=== PATIENT | female | born 1985 | race Caucasian/White ===

== ENCOUNTER 2018-03-01 03:36 | Inpatient (IN) | payer MEDICAID ==
[2018-03-01] VITALS (28 sets, daily range): BP systolic 90–124; BP diastolic 47–92
[~2018-03-01] VITALS: Ht 167.6 cm; Wt 69.9 kg
--- NOTE | 2018-03-01 03:40 | NUR ---
DEMETRI HENDERSON. SECODARY TO POSSIBLE OVERDOSE TO UNKNOWN MEDS. PT UNAROUSABLE BUT RESPONSIVE TO PAIN STIMULI. .O2 SAT 82% ON ROOM AIR WITH SNORING RESPIRATIONS. SKIN PINK, WARM, DRY. PUPILS DILATED. ASSISTED RESPIRATIONS VIA BVM 15LPM. KING MAK AT BEDSIDE TO EVAL PT. WITH ORDERS TO PREP PT ENTUBATION. Addendum: 03/01/18 at 0438 by MEDINA PER EMS S/O STATES PT PERSCRIBED SOMA.
[2018-03-01] MEDS ORDERED: PROPOFOL 100 ML ONE (03:42)
--- NOTE | 2018-03-01 03:44 | NUR ---
ER MD, RT, RN ERNESTINA DIXON JEFF, BERNARD, TOMMIE ED AT BEDSIDE FOR INTUBATION.
--- NOTE | 2018-03-01 03:48 | NUR ---
SUCCESSFUL INTUBATION. ET SIZE 7.5 AT 23.POSITIVE COLOR CHANGE CO2 DETECTOR, EQUAL BILATERAL BREATH SOUNDS. VENT SETTINGS AC 18, TV 450, FIO2 60%, PEEP 5.0. WILL CONTINUE TO MONITOR CLOSELY
--- NOTE | 2018-03-01 03:55 | NUR ---
RT PT INTUBATED W/ 7.5 @ 23 CM LIP VIA MD PARKS. ETT PT PLACED ON [facility] VENT WITH NOTED SETTING PER . VENT TO RED OUTLET. ALARMS SET AND AUDIBLE. AMBU BAG AT HOB. ETT PATENT AND SECURE VIA ANCHOR FAST. RESOURCE COORDINATOR DONE. BILATERAL BS AND POSITIVE CAPNO CHANGE. PT TOLERATING SETTING WELL NO SOB OR DISTRESS NOTED. WILL CONTINUE TO MONITOR. Addendum: 03/01/18 at 0359 by BRETT HENDRICKS RT Amended: Links added.
[2018-03-01] MEDS ORDERED: IV NS 0.9% 1,000 ML BAG IV ONE ×2 (04:00→05:30)
[2018-03-01] MEDS ORDERED: PROPOFOL 100 ML IV PRN ×2 (04:00→06:30)
[2018-03-01 04:10] LABS: BASOPHILS % (AUTO) 0.3 % (0.0-2.0); EOSINOPHILS % (AUTO) 0.8 % (0.0-6.0); HEMATOCRIT 36 % (33-45); HEMOGLOBIN 11.9 g/dL (11.5-14.8); LYMPHOCYTES # (AUTO) 1.9 /CMM (0.8-4.8); LYMPHOCYTES % (AUTO) 34.5 % (20.0-44.0); MEAN CORPUSCULAR HEMOGLOBIN 33 PG (26.0-33.0); MEAN CORPUSCULAR HGB CONC 33 g/dl (31.0-36.0); MEAN CORPUSCULAR VOLUME 98 fL (82-100); MONOCYTES # (AUTO) 0.3 /CMM (0.1-1.30); MONOCYTES % (AUTO) 4.7 % (2.0-12.0); NEUTROPHILS # (AUTO) 3.3 /CMM (1.8-8.9); NEUTROPHILS % (AUTO) 59.7 % (43.0-81.0); PLATELET COUNT (AUTO) 353 /CMM (150-450); RDW COEFFICIENT OF VARIATION 13.7 (11.5-15.0); RED BLOOD CELL COUNT(AUTO) 3.65 MIL/uL (4.0-5.2); WHITE BLOOD COUNT (AUTO) 5.6 K/uL (4.3-11.0)
[2018-03-01 04:19] LABS: APPEARANCE,URINE CLEAR (CLEAR); BILIRUBIN,URINE NEGATIVE (NEGATIVE); BLOOD, URINE TRACE-INTA Ery/uL (NEGATIVE); COLOR,URINE YELLOW (YELLOW); KETONES,URINE NEGATIVE (NEGATIVE); LEUKOCYTE ESTERASE ,URINE NEGATIVE (NEGATIVE); NITRITE, URINE NEGATIVE (NEGATIVE); PROTEIN,URINE TRACE mg/dl (NEGATIVE); UGLUCOSE NEGATIVE (NEGATIVE); UROBILINOGEN,URINE 0.2 EU/dL (0.2)
[2018-03-01 04:24] LABS: RBC,URINE 0-2 /HPF (0-2); WBC,URINE 0-2 /HPF (0-3)
[2018-03-01 04:25] LABS: BACTERIA,URINE Few /HPF (None Seen); SQUAMOUS EPITHELIAL CELL,UR Few /HPF (None Seen)
[2018-03-01 04:37] LABS: CALCIUM, SERUM 8.3 mg/dL (8.5-10.1); CARBON DIOXIDE 27 mmol/L (21-32); CHLORIDE 100 mmol/L (98-107); CREATININE 0.6 mg/dL (0.6-1.3); GLUCOSE 113 mg/dL (74-106); POTASSIUM 4.2 mmol/L (3.5-5.1); SODIUM SERUM 137 mmol/L (136-145); UREA NITROGEN, BLOOD 9 mg/dL (7-18)
--- NOTE | 2018-03-01 04:39 | NUR ---
PT MOTHER AT BEDSIDE. AWARE OF TX PLAN
[2018-03-01 04:43] LABS: ACETAMINOPHEN 0 ug/ml (10-30); ALANINE AMINOTRANSFERASE 182 U/L (12-78); ALBUMIN 3.9 g/dL (3.4-5.0); ALCOHOL, BLOOD 62 mg/dL (0-0); ALKALINE PHOSPHATASE 79 U/L (46-116); ASPARTATE AMINOTRANSFERASE 170 U/L (15-37); BILIRUBIN,TOTAL 0.2 mg/dL (0.2-1.0); SALICYLATE 1.1 mg/dL (2.8-20.0); TOTAL PROTEIN, SERUM 7.7 g/dL (6.4-8.2)
[2018-03-01] MEDS ORDERED: AZTREONAM 1 G in IV NS 0.9% 100 ML IV STA (05:11)
--- NOTE | 2018-03-01 05:15 | NUR ---
PT BROUGHT TO CT
[2018-03-01] MEDS ORDERED: LEVOFLOXACIN 750 MG /D5W 150ML 750 MG in PREMIX 1 EA IV SCH ×2 (05:30→09:00)
[2018-03-01] MEDS ORDERED: IV NS 0.9% 500 ML BAG IV ONE (05:30)
[2018-03-01 05:34] LABS: ABG BASE EXCESS -3.8 mmol/L; ABG OXYGEN SATURATION 98.8 % (92.0-98.5); ABG PH 7.372 (7.350-7.450); ABG PO2 273.8 mmHg (75.0-100.0); AaDO2 113.3 mmHg; COHb 0.3 % (0.5-1.5); MetHb 0.5 % (0.0-1.5); PEEP,BG 5 cm H2O; SITE, ABG Right Radial; VT, ABG 450 mL
[2018-03-01] MEDS ORDERED: LEVOFLOXACIN 750 MG /D5W 150ML 150 ML IV ONE (05:34)
--- NOTE | 2018-03-01 05:40 | NUR ---
PER MD PARKS ETT ADJUSTED TO 21CM LIP. ETT PATENT AND SECURE. Addendum: 03/01/18 at 0542 by BRETT HENDRICKS RT Amended: Links added.
--- NOTE | 2018-03-01 06:06 | NUR ---
REPORT GIVEN TO FERTILIZING MACHINE OPERATORMARCELA WARD
[2018-03-01] MEDS ORDERED: AZTREONAM 1 G VIAL ONE (06:10)
--- NOTE | 2018-03-01 06:20 | NUR ---
FIELD ADVISOR: PT ADMITTED FOR ACUTE RESPIRATORY FAILURE REQUIRING INTUBATION. VENT SETTINGS ORDERED. SEDATED WT PROPOFOL STARTED FROM ER RUNNING AT 50MCG/KG/MIN, WITHDRAWS TO DEEP PAIN STIMULI. NO ACUTE DISTRESS, NO EVIDENCE OF DISCOMFORT. SR ON ENGINEERING OFFICER. AFEBRILE. RT. NGT IN PLACED AND CLAMPED. F/C PATENT AND INTACT DRAINING YELLOW URINE TO GRAVITY. BODY ASSESSMENT DONE WT NO SKIN BREAKDOWN. BILAT. SOFT WRIST RESTRAINTS IN PLACE TO PREVENT SELF EXTUBATION. NO S/S OF IV INFILTRATION. HOB AT 45 DEGREES. SAFETY PRECAUTION NOTED.
[2018-03-01] MEDS ORDERED: Z GUARD REMEDY 2 OZ OINT TP PRN (06:30)
[2018-03-01] MEDS ORDERED: ACETAMINOPHEN 650 MG/SUPP.RECT RC PRN (06:30)
[2018-03-01] MEDS ORDERED: ONDANSETRON HCL/PF 4 MG/2 ML VIAL IVP PRN (06:30)
[2018-03-01] MEDS ORDERED: MAGNESIUM HYDROXIDE 30 ML UDC PO PRN (06:30)
--- NOTE | 2018-03-01 06:36 | NUR ---
PT TRANSP TO ICU STABLE CONDITION. RT, EMT, RN ASSIST
--- NOTE | 2018-03-01 07:00 | NUR ---
ANESTHESIOLOGY TECHNOLOGIST: LAZARO VASQUEZ MADE AWARE OF LACTIC ACID 3.1 FROM 3. ENDORSED TO DAY SHIFT FOR CONTINUITY OF CARE AND MADE AWARE OF ETT READJUSTMENT PERFORMED BY RT IN ER AND RECOMMENDED TO ASK MD FOR REPEAT CXR.
--- NOTE | 2018-03-01 07:11 | NUR ---
latrice at bedside. received report on patient. patient was found unresponsive on bathroom floor at home by parents. x2 narcan given without improvement and intubated in ER. patient 7.09/06 at [facility]; per board mixer tender order to remove 2cm s/t ett in right mainstem bronchus. tolerating vent settings at 50% saturating 100% noisy respirations noted and thin clear secretions suctioned. no noted sob, difficulty breathing. patient on ordered diprovan will continue to titrate per protocol. patient grimaces to pain. iv sites c/d/i/p. 500ml ns bolus running per order. vs stable. luque cath in place draining to gravity. aspiration, safety, and skin precautions in place. will monitor. Addendum: 03/01/18 at 0725 by DRISS CAMPOVERDE RN patient on 50mcg/kg diprovan will continue to titrate. Addendum: 03/01/18 at 0859 by DRISS CAMPOVERDE RN PATIENT 7.12/04 LIP
--- NOTE | 2018-03-01 07:46 | NUR ---
PATIENT RESPONSIVE WHILE OFF DIPROVAN. OPENS EYES AND FOLLOWS COMMANDS. THRASHING HEAD AND NODDING YES TO BEING UNCOMFORTABLE. WILL RESUME DIPROVAN AND TITRATE PER PROTOCOL
[2018-03-01] MEDS: IV NS 0.9% 1,000 ML IV PRN ×2 (07:50→21:10)
--- NOTE | 2018-03-01 08:15 | NUR ---
PER FAMILY AT BEDSIDE PATIENT STATED SHE TOOK SOMA AND SOME WINE LAST NIGHT. PATIENT OD'D ON SOMA 8 YEARS AGO WITH SIMILAR ADMISSION AND WAS TOLD AT THAT TIME BY AN MD SHE IS UNABLE TO FROM AN OD ON SOMA SO FAMILY IS UNK IF PATIENT OD WAS ACCIDENTAL OR NOT. MOTHER STATES PATIENT HAS BEEN DEPRESSED LATELY DUE TO [place] DISEASE. PATIENT ALSO HAS RX FOR ATIVAN AND VALIUM UNK IF TOOK ALSO. SOCIAL CONSULT ORDERED.
--- NOTE | 2018-03-01 08:18 | NUR ---
PER CHRISTINA HUGHES REQUEST NOTIFIED PER FAMILY PCN ALLERGY IS "BAD" UNKNOWN RESPONSE HOWEVER. DR MULTANI AT BEDSIDE.
--- NOTE | 2018-03-01 08:30 | NUR ---
NOTIFIED DR MULTANI PATIENT OGT PLACEMENT PER X RAY THORACIC INLET PER MD IRBY TO REMOVE. REMOVED NO COMPLICATIONS NOTED
--- NOTE | 2018-03-01 09:11 | NUR ---
PER MD NERISSA FLORES.
[2018-03-01] MEDS: PANTOPRAZOLE 40 MG VIAL IV SCH (09:18)
[2018-03-01] MEDS: ENOXAPARIN SODIUM 40 MG/0.4 ML DISP.SYRIN SQ SCH (09:51)
[2018-03-01] MEDS ORDERED: DC PROPOFOL WHEN EXTUBATED XX PRN (10:00)
--- NOTE | 2018-03-01 11:05 | NUR ---
PER ORDER PATIENT TOLERATING FI02 TITRATION CURRENTLY AT 35%. ON 10MCG DIPROVAN COMFORTABLE. FOLLOWING COMMANDS AND RESTING COMFORTABLY. MOTHER AT BEDSIDE
--- NOTE | 2018-03-01 11:31 | NUR ---
Social service consult requested by Dr. Kelley for drug overdose. Pt. is a 32 year old female who was admitted to [facility] for respiratory failure due to overdosing on Soma. SW is unable to assess pt. at this time due to pt. being intubated. TRICIA spoke with pt's mother Caity who informed SW that pt. has a history of trauma. TRICIA informed Caity she will follow up with the pt. once pt. is alert and oriented. TRICIA also informed Caity that pt. will be assessed by a psychiatrist as well.
[2018-03-01] MEDS ORDERED: METRONIDAZOLE 500MG/ NS 100ML 500 MG in PREMIX 1 EA IV SCH (12:00)
--- NOTE | 2018-03-01 14:49 | NUR ---
NOTIFIED DR DONALDSON PATIENT IS COOPERATIVE, OPENING EYES INDEPENDENTLY, FOLLOWING COMMANDS. PER MD PLEASE DO CPAP TRIAL 06/20 AND OBTAIN ABG 30MIN S/P CHANGES
[2018-03-01 15:37] LABS: ABG BASE EXCESS -0.9 mmol/L; ABG OXYGEN SATURATION 97.5 % (92.0-98.5); ABG PCO2 39.5 mmHg (35.0-45.0); ABG PH 7.398 (7.350-7.450); ABG PO2 129.2 mmHg (75.0-100.0); AaDO2 74.4 mmHg; COHb 0.3 % (0.5-1.5); MetHb 0.5 % (0.0-1.5); O2Hb 96.7 % (94.0-97.0); SITE, ABG Right Radial; VENT MODE, BG CPAP PSV 12
--- NOTE | 2018-03-01 15:53 | NUR ---
PATIENT EXTUBATED SUCCESSFULLY PER DR DONALDSON ORDER. NO COMPLICATIONS NOTED. PATIENT A/0X4 ABLE TO PROTECT AIRWAY. PLACED ON 2LPM NC AND SATURATING 99%. PATIENT S/O AT BEDSIDE.
--- NOTE | 2018-03-01 15:53 | NUR ---
PT EXTUBATED POST WEANING TRIAL. PLACED ON 2 LPM O2. ZERO DISTRESS NOTED PT ABLE TO SPEAK. B/S EQUAL. MD AND RN AWARE.
--- NOTE | 2018-03-01 17:11 | NUR ---
NOTIFIED DR MULTANI PATIENT PASSED NURSING SWALLOW EVAL. TOLERATING LIQUIDS AND SNACKS NO COMPLICATIONS NOTED. ABLE TO CLEAR SECRETIONS AND PROTECT AIRWAY. SOFT DIET ORDERED
--- NOTE | 2018-03-01 18:36 | NUR ---
pt stable. tolerated dinner no s/s aspiration. s/o at bedside. ivf running per order. iv site c/d/i/p. luque cath to gravity. tolerating nc 2lpm 99-100%. patient a/ox4 alert. no complaints at this time. aspiration, safety, and skin precautions in place. will endorse to rn for cocn
--- NOTE | 2018-03-01 19:30 | NUR ---
CAREER COORDINATOR: RECEIVED S/P EXTUBATED PT, WT EYES CLOSED. ON 2L 02 VIA NC WT NO ACUTE DISTRESS. NO EVIDENCE OF DISCOMFORT. SR ON EDUCATIONAL THERAPIST. STILL ON NS AT 75ML/HR WT NO S/S OF IV INFILTRATION. F/C PATENT AND INTACT DRAINING YELLOW URINE TO GRAVITY. HOB AT 35 DEGREES. SAFETY AND ASPIRATION PRECAUTION NOTED. MOM AND BOYFRIEND AT BEDSIDE. WILL CONTINUE TO MONITOR.
[2018-03-02] VITALS (25 sets, daily range): BP systolic 97–138; BP diastolic 53–98
[2018-03-02] MEDS: ACETAMINOPHEN 325 MG TABLET PO PRN (01:50)
--- NOTE | 2018-03-02 01:50 | NUR ---
CAMPUS SAFETY OFFICER: PT WOKE UP AND BECOME MORE ALERT AT THIS TIME. C/O HEADACHE (09/23) AND GIVEN TYLENOL ORDERED AND TOLERATED WELL WT NO S/S OF ASPIRATION. ORIENTED X 3. SAFETY PRECAUTION NOTED AT ALL TIMES. WILL CONTINUE TO MONITOR TYLENOL EFFECTIVITY.
--- NOTE | 2018-03-02 02:50 | NUR ---
FUNERAL SERVICE APPRENTICE: REASSESSED AFTER GIVEN TYLENOL. PT VERBALIZED STILL WT HEADACHE (3). ASKED FOR COLD PACK TO PLACE ON FOREHEAD. WILL CONTINUE TO MONITOR.
[2018-03-02 03:57] LABS: BASOPHILS # (AUTO) 0.1 /CMM (0.0-0.2); BASOPHILS % (AUTO) 0.6 % (0.0-2.0); HEMATOCRIT 32 % (33-45); HEMOGLOBIN 10.8 g/dL (11.5-14.8); LYMPHOCYTES # (AUTO) 1.2 /CMM (0.8-4.8); LYMPHOCYTES % (AUTO) 11.4 % (20.0-44.0); MEAN CORPUSCULAR HEMOGLOBIN 33 PG (26.0-33.0); MEAN CORPUSCULAR HGB CONC 34 g/dl (31.0-36.0); MEAN CORPUSCULAR VOLUME 99 fL (82-100); MONOCYTES # (AUTO) 0.6 /CMM (0.1-1.30); MONOCYTES % (AUTO) 6.1 % (2.0-12.0); NEUTROPHILS # (AUTO) 8.5 /CMM (1.8-8.9); NEUTROPHILS % (AUTO) 80.9 % (43.0-81.0); PLATELET COUNT (AUTO) 344 /CMM (150-450); RDW COEFFICIENT OF VARIATION 13.9 (11.5-15.0); RED BLOOD CELL COUNT(AUTO) 3.26 MIL/uL (4.0-5.2); WHITE BLOOD COUNT (AUTO) 10.4 K/uL (4.3-11.0)
[2018-03-02 04:12] LABS: CALCIUM, SERUM 7.6 mg/dL (8.5-10.1); CREATININE 0.5 mg/dL (0.6-1.3); MAGNESIUM 1.7 mg/dL (1.8-2.4); PHOSPHORUS 2.9 mg/dL (2.5-4.9); POTASSIUM 3.8 mmol/L (3.5-5.1)
[2018-03-02] MEDS: MORPHINE SULFATE INJ 2 MG/ML DISP.SYRIN IV PRN ×4 (04:16→22:50)
--- NOTE | 2018-03-02 04:16 | NUR ---
TECHNICAL APPLICATIONS SCIENTIST: PT VERBALIZED HEADACHE HAS GOTTEN WORSE (02/23) AND IS INEFFECTIVE BY TYLENOL AND NON-PHARMACOLOGICAL MEASURES. MORPHINE GIVEN. ALSO REFUSED BED BATH. REMAINS CLEAN AND DRY. WILL TRY AGAIN LATER AND CONTINUE TO MONITOR PAIN LEVEL.
[2018-03-02 04:25] LABS: THYROID STIMULATING HORMONE 0.439 uIU/mL (0.358-3.74)
--- NOTE | 2018-03-02 06:30 | NUR ---
COMBAT SYSTEMS OPERATOR: REMAINED A/O X 3. STILL ON 2L 02 VIA NC WT NO ACUTE DISTRESS. ST ON FIELD PIPELINES SUPERVISOR SINCE AWAKE. STILL C/O HEADACHE (09/23). RELAXATION AND DISTRACTION TECHNIQUES RENDERED WT GOOD EFFECT. MOM AT BEDSIDE. SAFETY PRECAUTION NOTED AT ALL TIMES.
--- NOTE | 2018-03-02 08:00 | NUR ---
received pt from meat stuffer, a/o x4, follows commands, ST, on 2L NC, sat well, lungs clear, no edema, tolerates diet, good urine output, v/s stable, no pain, family at the bedside.
[2018-03-02] MEDS: PANTOPRAZOLE 40 MG VIAL IV SCH (09:23)
[2018-03-02] MEDS: ENOXAPARIN SODIUM 40 MG/0.4 ML DISP.SYRIN SQ SCH (09:25)
[2018-03-02] MEDS: Magnesium 1GM/D5W 100ML PREMIX 100 ML IV SCH ×2 (11:11→13:13)
[2018-03-02] MEDS: IV NS 0.9% 1,000 ML IV PRN (11:16)
--- NOTE | 2018-03-02 16:08 | NUR ---
pt is resting in the bed, v/s stable, no pain, good urine output, tolerates feeding.
--- NOTE | 2018-03-02 20:43 | NUR ---
MORTGAGE SPECIALIST. INITIAL ASSESSMENT. RECEIVED THE PT REST ON THE BED. AWAKE, ALERT, FOLLOW COMMANDS. GRINDING AND SPRAYING SUPERVISOR SHOWING S TACH. OXYGEN 2L VIA NASAL CANNULA. SAT 98%. NO ACUTE DISTRESS NOTED. IV LY HAND 20G. IVF NS 75ML/H. HOB ELEVATED. FC PATENT. URINE DRAINING. WILL CONTINUE TO MONITOR VITALS.
--- NOTE | 2018-03-02 22:06 | NUR ---
MAST MAKER. TRANSFER THE PT TO TELE ROOM 313 BED #2. PT IS STABLE, REPORT GIVEN TO MARCELA YANG.
--- NOTE | 2018-03-02 22:30 | NUR ---
SECOND BALLER NOTES PATIENT TRANSFERRED FROM ICU UNDER ACLS PROTOCOL, ACCOMPANIED BY 2 ICU NURSES, ENTERED THE UNIT VIA GURNEY, PT IS ALERT AND ORIENTED X 4, NO SOB, BREATHING EVEN AND UNLABORED, IN NO ACUTE DISTRESS. PT VERBALIZED THAT SHE HAS A HEADACHE AND HAS 8/10 LEVEL OF PAIN. ORIENTED PATIENT REGARDING UNIT, ROOM, CALL LIGHT, USE OF CALL LIGHT AND VISITING HOURS. PT VERBALIZED UNDERSTANDING BUT WITH REQUEST FOR S.O., SASCHA TO STAY OVERNIGHT, CHARGE NURSE AWARE. ALL PATIENT'S NEEDS ATTENDED TO AT THIS TIME, BED IN LOW POSITION AND LOCKED IN PLACE, WITH GOOD SAFETY AWARENESS, DENIES ANY S.I. AT THIS TIME. CALL LIGHT WITHIN EASY REACH. WILL CONTINUE TO MONITOR PT. PT UNDER TELE MONITORING, ST @ 115 BPM. Addendum: 03/02/18 at 2356 by MONSERRAT YODER RN PT WITH FARFAN CATHETER DRAINING WELL WITH CLEAR, YELLOW URINE. ON IVF ORDERED INFUSING WELL VIA IV PERIPHERAL LINE ON LW G#20. RECEIVING O2 VIA NC @ 2LPM.
--- NOTE | 2018-03-02 23:00 | NUR ---
STOCKLAYER NOTE SPOKE TO PT REGARDING DIET, PT COMFORTABLE WITH CURRENT DIET OF SOFT DIET, WITH NO EPISODE OF N/V/D. PT VERBALIZED SHE WOULD LIKE TO CONTINUE TO BE ON SOFT DIET FOR BREAKFAST AND SEE HOW IT GOES FROM THERE. RESPECTED PT'S DECISION.
[2018-03-03] MEDS: IV NS 0.9% 1,000 ML IV PRN (02:16)
[2018-03-03] MEDS: MORPHINE SULFATE INJ 2 MG/ML DISP.SYRIN IV PRN ×5 (03:02→22:24)
[2018-03-03 04:00] VITALS: BP 122/87
--- NOTE | 2018-03-03 06:52 | NUR ---
RECRUITER COORDINATOR NOTES PATIENT IN BED, AWAKE, ALERT AND ORIENTED X 4, NO SOB , BREATHING EVEN AND UNLABORED, IN NO ACUTE DISTRESS. PATIENT'S BF AT BEDSIDE. ALL PATIENT'S NEEDS ATTENDED TO THROUGHOUT THE SHIFT. IVF INFUSING WELL VIA IVP ON LW, FARFAN CATHETER DRAINING WITH YELLOW CLEAR URINE. PLACED BED IN LOW POSITION AND LOCKED IN PLACE, CALL LIGHT WITHIN EASY REACH. PT ON TELE MONITORING, SINUS RHYTHM/SINUS TACHYCARDIA @ 94-120S. WILL ENDORSE TO AM SHIFT NURSE FOR CONTINUITY OF CARE.
--- NOTE | 2018-03-03 07:25 | NUR ---
JOURNEYMAN CARPENTER OPENING NOTES PATIENT RECEIVED ASLEEP IN BED, EASILY AWAKENS. HOB ELEVATED. BOYFRIEND AT BEDSIDE. ON 02 VIA N/C @ 2LPM, BREATHING EVEN AND UNLABORED. ON TELE MONITORING WITH CURRENT READING OF SINUS TACHYCARDIA 102. IV ACCESS ON LEFT WRIST INTACT AND PATENT, IVF OF NS @ 75ML/HR INFUSING WELL, NO S/S OF INFILTRATIONS NOTED. FARFAN CATHETER IN PLACE, DRAINING YELLOW CLEAR URINE TO URINARY BAG. BED IN LOW POSITION AND LOCKED. CALL LIGHT WITHIN EASY REACH. WILL CONTINUE TO MONITOR.
[2018-03-03 08:00] VITALS: BP 147/91
[2018-03-03] MEDS: ENOXAPARIN SODIUM 40 MG/0.4 ML DISP.SYRIN SQ SCH (08:21)
[2018-03-03] MEDS: PANTOPRAZOLE 40 MG VIAL IV SCH (08:21)
[2018-03-03 08:54] LABS: CALCIUM, SERUM 8.2 mg/dL (8.5-10.1); CREATININE 0.6 mg/dL (0.6-1.3); MAGNESIUM 1.9 mg/dL (1.8-2.4); POTASSIUM 3.7 mmol/L (3.5-5.1)
--- NOTE | 2018-03-03 09:17 | NUR ---
RN NOTES DR MULTANI ORDER PSYCH CONSULT FOR PT. CALLED [employer]S SWIM COACH AND SAID THAT IT'S DR RIVERA. FACE SHEET AND ROOM NO OF PT FAXED TO [employer] AND WAS RECEIVED. WILL F/U.
--- NOTE | 2018-03-03 10:06 | NUR ---
RN NOTES/PAIN MGNT PATIENT COMPLAINTS OF HEADACHE AND PAIN ON B/L LEGS WITH SCALE OF 8/10, PRN MORPHINE 2MG IVP GIVEN. WILL CONTINUE TO MONITOR.
[2018-03-03] MEDS ORDERED: ALBUTEROL SULFATE 8 GM HFA.AER.AD IH PRN (10:30)
[2018-03-03] MEDS ORDERED: ALBUTEROL FS 2.5 MG/3 ML VIAL.NEB NEB PRN (10:30)
--- NOTE | 2018-03-03 12:03 | NUR ---
RN NOTES MD WITH ORDER TO D/C IVF AND FARFAN CATHETER. ORDERED CARRIED OUT AND PT VOIDED ON THE TOILET W/O PROBLEMS, SAME NO HEMATURIA NOTED. WILL CONTINUE TO MONITOR
[2018-03-03] MEDS: DULOXETINE HCL 30 MG CAPSULE.DR PO SCH (14:25)
--- NOTE | 2018-03-03 14:32 | NUR ---
RN NOTES/PAIN MGNT PATIENT COMPLAINTS OF GENERALIZED PAIN WITH SCALE OF 8/10, PRN MORPHINE 2MG IVP GIVEN. WILL CONTINUE TO MONITOR.
[2018-03-03 16:00] VITALS: BP_SYST 135; BP_SYST 156; BP_DIAS 101; BP_DIAS 95
--- NOTE | 2018-03-03 17:26 | NUR ---
RN NOTES PATIENT SEEN AND EVALUATED BY DR HEAD WITH ORDER TO ADMINISTER PATIENT PRN SALINE NASAL SPRAY PRN. WILL CARRY OUT ORDER
[2018-03-03] MEDS ORDERED: SALINE NASAL SPRAY 0.65% 1 BOTTLE BOTTLE NS PRN (17:30)
--- NOTE | 2018-03-03 18:59 | NUR ---
MS RN CLOSING NOTES PATIENT AWAKE AND RESTING IN BED WITH FAMILY AT BEDSIDE. A/O X4. ABLE TO MAKE NEEDS KNOWN WITH C/O GENERALIZED PAIN FEW MINUTES AGO, PRN MORPHINE 2MG IVP. PT TOLERATED ROOM AIR WITH NO ACUTE SIGNS OF DISTRESS NOTED. IV ACCESS ON LEFT WRIST LEAKING, NEW IV LINE INSERTED TO LEFT HAND G#24 AND SECURED PROPERLY WITH TAPE. ALL NEEDS AND CARE ATTENDED WELL. ALL SAFETY MEASURES KEPT IN PLACE. BED IN LOW POSITION AND LOCKED. CALL LIGHT WITHIN EASY REACH. WILL ENDORSE TO GLOST TILE SORTER NURSE FOR TOLU. .
[2018-03-03 20:00] VITALS: BP 137/89
--- NOTE | 2018-03-03 20:05 | NUR ---
MS RN OPENING NOTES RECEIVED REPORT FROM AM RN. PATIENT A/A/O X4, ABLE TO MAKE NEEDS KNOWN. BREATHING EVEN & UNLABORED, TOLERATING ROOM AIR. DENIES ANY SOB OR DIFFICULTY BREATHING. PULSES PRESENT AND SKIN WARM, DRY & INTACT. LEFT HAND IV #24 INTACT & PATENT W/ DRESSING CDI, SALINE LOCKED. DENIES ANY PAIN OR DISCOMFORT @ THIS TIME. SAFETY MEASURES IN PLACE W/ BED ALARM ON & CALL LIGHT WITHIN REACH. INSTRUCTED TO CALL FOR ASSISTANCE. WILL CONTINUE TO MONITOR.
[2018-03-03] MEDS ORDERED: LORAZEPAM 1 MG TABLET PO PRN (22:30)
--- NOTE | 2018-03-03 22:30 | NUR ---
RN NOTES PATIENT C/O FEELING ANXIOUS & REQUESTED FOR SOMETHING TO HELP HER RELAX. SPOKE TO CHRISTINA HUGHES & RECEIVED ORDER FOR ATIVAN 1MG PO PRN. NEW ORDER CARRIED OUT.
[2018-03-04] MEDS: MORPHINE SULFATE INJ 2 MG/ML DISP.SYRIN IV PRN ×2 (02:22→05:55)
[2018-03-04] MEDS: ACETAMINOPHEN 325 MG TABLET PO PRN (05:04)
--- NOTE | 2018-03-04 06:14 | NUR ---
RN NOTES PATIENT NOT FEELING WELL @ THIS TIME D/T MIGRAINE & REFUSED AM LAB DRAW. WILL ENDORSE TO ONCOMING NURSE.
--- NOTE | 2018-03-04 07:35 | NUR ---
RN NOTES PATIENT A/OX4, PATIENT IS STILL C/O MIGRAINE, PER PATIENT SHE HASN'T HAD ANY SLEEP LAST NIGHT BECAUSE OF DISTRACTIONS FROM STAFF, PATIENT VERBALIZED SHE WANTS TO GO HOME TODAY. AT BEDSIDE, NEEDS ATTENDED AND MET, CALL LIGHT WITHIN REACH, WILL CONTINUE TO MONITOR.
[2018-03-04 08:00] VITALS: BP 136/84
[2018-03-04] MEDS: ENOXAPARIN SODIUM 40 MG/0.4 ML DISP.SYRIN SQ SCH (08:53)
[2018-03-04] MEDS: PANTOPRAZOLE 40 MG VIAL IV SCH (08:53)
[2018-03-04] MEDS: DULOXETINE HCL 30 MG CAPSULE.DR PO SCH (08:53)
[2018-03-04] MEDS ORDERED: DULO30CA2 PO (09:41)
--- NOTE | 2018-03-04 10:10 | NUR ---
DISCHARGE NOTE CALLED DR. RIVERA AND STATED PATIENT IS CLEARED FOR DISCHARGE. PATIENT SEEN AND EXAMINED BY DR. MULTANI. A/OX4, BREATHING EVEN AND UNLABORED, NO DISTRESS NOTED, PER PATIENT MIGRAINE FEELS BETTER. PATIENT AND MOM AT BEDSIDE RECEIVED DISCHARGE INSTRUCTIONS AND VERBALIZED UNDERSTANDING, PAPERWORKS SIGNED, BELONGINGS RECONCILED AND COMPLETE. NEEDS ATTENDED AND MET, PIV ON LEFT FA, REMOVED, APPLIED PRESSURE AND COVERED WITH GAUZE AND TAPE. PATIENT LEFT THE FACILITY VIA PRIVATE CAR, IN NO DISTRESS. Addendum: 03/04/18 at 1031 by RAJANI PRASAD RN ADDENDUM: SKIN ASSESSMENT COMPLETED, SKIN DRY AND INTACT. PHOTOS TAKEN AND PLACED IN CHART.
== END 2018-03-04 10:10 | disposition home or self-care (01) | DRG 812 ==
LOC: ER 03:37 → ICU 04:42 → TELE 03-02 22:24 → MED 03-03 08:25
PROVIDERS: ADMIT Hospitalist; ATTEND Hospitalist
PROC: 0BH17EZ Insertion of Endotracheal Airway into Trachea, Via Natural or Artificial Opening (ICD-10-PCS; principal; 2018-03-01)
PROC: 5A1935Z Respiratory Ventilation, Less than 24 Consecutive Hours (ICD-10-PCS; principal; 2018-03-01)
DX: T42.4X1A Poisoning by benzodiazepines, accidental (unintentional), initial encounter (principal); J96.00 Acute respiratory failure, unspecified whether with hypoxia or hypercapnia; G92 Toxic encephalopathy; A69.20 Lyme disease, unspecified; E87.2 Acidosis; F33.1 Major depressive disorder, recurrent, moderate; Z88.0 Allergy status to penicillin; R73.9 Hyperglycemia, unspecified; Z86.19 Personal history of other infectious and parasitic diseases; J45.909 Unspecified asthma, uncomplicated; G89.29 Other chronic pain; F43.10 Post-traumatic stress disorder, unspecified; F13.10 Sedative, hypnotic or anxiolytic abuse, uncomplicated; R74.0 Nonspecific elevation of levels of transaminase and lactic acid dehydrogenase [LDH]; Y92.002 Bathroom of unspecified non-institutional (private) residence as the place of occurrence of the external cause
CPT/HCPCS: 36415; 36600; 70450-TC; 71045-TC; 80048-TC; 80061-TC; 80076-TC; 80305; 81000-TC; 82803-TC; 82962-TC; 83605-TC; 83735-TC; 84100-TC; 84443-TC; 84703-TC; 85025-TC; 87040-TC; 87081-TC; 92611-TC; A4216; A4606; C9113; G0480; J1650; J1956; J2270; J3475; J3490; J7030; J7040; J7050; Z7610

== ENCOUNTER 2019-07-31 23:56 | Emergency (ER) | payer MEDICAID ==
[~2019-07-31] VITALS: Ht 167.6 cm; Wt 86.2 kg
[~2019-07-31 23:56] MED LIST: DULO30CA2 PO
--- NOTE | 2019-08-01 00:36 | NUR ---
PT BIB RA W/ MOTHER AT BEDSIDE C/O PAIN ON THE LEFT SIDE OF HER FACE, RIGHT ELBOW, AND KNEES. PT STATES THAT SHE FELL DOWN 2 FLIGHT OF STAIRS, ABOUT 10 STEPS. STATES THAT SHE HIT HER HEAD, LOSS CONSCIOUSNESS, AND SPOKE P[place]CA[place] ISLANDER AND WAS UNABLE TO SPEAK URDU. AAOX4. BREATHING EVENLY AND UNLABORED. CONNECTED TO MONITOR.
--- NOTE | 2019-08-01 00:41 | NUR ---
PATIENT UNABLE TO PROVIDE URINE AT THIS TIME. WILL TRY AGAIN LATER.
[2019-08-01] MEDS ORDERED: MORPHINE SULFATE INJ 4 MG/ML DISP.SYRIN ONE ×2 (00:56→03:03)
[2019-08-01] MEDS ORDERED: ONDANSETRON 4 MG TAB.RAPDIS ONE (00:57)
[2019-08-01] MEDS ORDERED: MORPHINE SULFATE INJ 2 MG/ML DISP.SYRIN IM ONE ×2 (01:00→03:30)
[2019-08-01] MEDS ORDERED: ONDANSETRON 4 MG TAB.RAPDIS SL ONE (01:00)
--- NOTE | 2019-08-01 01:19 | NUR ---
PT UNABLE TO PROVIDE URINE AT THIS TIME.
--- NOTE | 2019-08-01 01:23 | NUR ---
patient signed waiver form. sent w/ horse trader to [place]
--- NOTE | 2019-08-01 03:01 | NUR ---
PATIENT STATES THAT SHE HAS PAIN. 01/23. MD NOTIFIED. VERBAL ORDER TO GIVE MORPHINE 4MG IM TO PATIENT.
--- NOTE | 2019-08-01 03:12 | NUR ---
Patient discharged to home in stable condition. Written and verbal after care instructions given. Patient verbalizes understanding of instruction.
[2019-08-01 03:15] VITALS: BP 135/76
== END 2019-08-01 03:15 | disposition home or self-care (01) ==
LOC: ER 23:56
DX: S09.8XXA Other specified injuries of head, initial encounter (principal); M25.512 Pain in left shoulder; M25.522 Pain in left elbow; W10.8XXA Fall (on) (from) other stairs and steps, initial encounter; Y93.89 Activity, other specified; Y92.89 Other specified places as the place of occurrence of the external cause; Y99.8 Other external cause status
CPT/HCPCS: 70450; 73030; 73080; 96372 ×2; 99284; J2270 ×2; Q0162

== ENCOUNTER 2021-10-15 22:52 | Emergency (ER) | payer MEDICAID ==
[~2021-10-15] VITALS: Ht 167.6 cm; Wt 70.3 kg
[2021-10-15 23:27] VITALS: BP 128/66
--- NOTE | 2021-10-15 23:30 | NUR ---
TEJAL FROM HOME C/O "BODY PAIN DUE TO [place] DISEASE FLARE UP". PATIENT IN BED 06 ON MONITOR AWAITING MD XIAO.
[2021-10-16] MEDS ORDERED: LORAZEPAM 1 MG TABLET PO ONE
[2021-10-16] MEDS ORDERED: KETOROLAC TROMETHAMINE INJ 30 MG/ML VIAL IM ONE
[2021-10-16] MEDS ORDERED: LORAZEPAM 1 MG TABLET ONE (00:06)
[2021-10-16] MEDS ORDERED: KETOROLAC TROMETHAMINE INJ 30 MG/ML VIAL ONE (00:07)
== END 2021-10-16 00:40 | disposition home or self-care (01) ==
LOC: ER 22:58
DX: K22.4 Dyskinesia of esophagus (principal); G89.29 Other chronic pain; A69.20 Lyme disease, unspecified; F41.9 Anxiety disorder, unspecified; Z91.49 Other personal history of psychological trauma, not elsewhere classified; Z88.0 Allergy status to penicillin; Z79.899 Other long term (current) drug therapy
CPT/HCPCS: 96372; 99283; J1885

== ENCOUNTER 2024-01-04 18:29 | Emergency (ER) | payer MEDICAID, OTHER ==
[~2024-01-04] VITALS: Ht 167.6 cm; Wt 70.3 kg
[2024-01-04 19:21] LABS: BASOPHILS # (AUTO) 0.1 K/uL (0.0-0.2); BASOPHILS % (AUTO) 0.7 % (0.0-2.0); EOSINOPHILS # (AUTO) 0.1 K/uL (0.0-0.7); EOSINOPHILS % (AUTO) 0.8 % (0.0-6.0); HEMATOCRIT 35 % (33-45); HEMOGLOBIN 11.8 g/dL (11.5-14.8); LYMPHOCYTES # (AUTO) 1.4 K/uL (0.8-4.8); LYMPHOCYTES % (AUTO) 20.7 % (20.0-44.0); MEAN CORPUSCULAR HEMOGLOBIN 32 PG (26.0-33.0); MEAN CORPUSCULAR HGB CONC 34 g/dl (31.0-36.0); MEAN CORPUSCULAR VOLUME 94 fL (82-100); MONOCYTES # (AUTO) 0.3 K/uL (0.1-1.30); NEUTROPHILS # (AUTO) 5.1 K/uL (1.8-8.9); NEUTROPHILS % (AUTO) 72.8 % (43.0-81.0); PLATELET COUNT (AUTO) 347 K/uL (150-450); RED CELL DISTRIBUTION WIDTH 13.8 % (11.5-15.0); WHITE BLOOD COUNT (AUTO) 6.9 K/uL (4.3-11.0)
[2024-01-04 19:34] LABS: ALANINE AMINOTRANSFERASE 27 U/L (12-78); ALBUMIN 3.2 g/dL (3.4-5.0); ALCOHOL, BLOOD 221 mg/dL (0-10); ALKALINE PHOSPHATASE 77 U/L (46-116); ASPARTATE AMINOTRANSFERASE 9 U/L (15-37); BILIRUBIN,DIRECT 0.1 mg/dL (0.0-0.2); BILIRUBIN,TOTAL 0.2 mg/dL (0.2-1.0); CALCIUM, SERUM 9.2 mg/dL (8.5-10.1); CARBON DIOXIDE 27 mmol/L (21-32); CHLORIDE 108 mmol/L (98-107); CREATININE 0.5 mg/dL (0.6-1.3); GLUCOSE 100 mg/dL (74-106); POTASSIUM 3.3 mmol/L (3.5-5.1); SODIUM SERUM 146 mmol/L (136-145); TOTAL PROTEIN, SERUM 7.5 g/dL (6.4-8.2); UREA NITROGEN, BLOOD 6 mg/dL (7-18)
[2024-01-04 19:43] LABS: ACETAMINOPHEN <10 ug/ml (10-30); SALICYLATE 1.1 mg/dL (2.8-20.0)
[2024-01-04] MEDS ORDERED: OLANZAPINE 10 MG VIAL IM ONE (19:48)
[2024-01-04] MEDS: OLANZAPINE 10 MG VIAL IM ONE (19:53)
[2024-01-04 21:36] LABS: PREGNANCY TEST URINE QUAL NEGATIVE (NEGATIVE)
[2024-01-04 21:37] LABS: APPEARANCE,URINE CLEAR (CLEAR); BILIRUBIN,URINE NEGATIVE (NEGATIVE); BLOOD, URINE NEGATIVE Ery/uL (NEGATIVE); COLOR,URINE YELLOW (YELLOW); KETONES,URINE NEGATIVE (NEGATIVE); LEUKOCYTE ESTERASE ,URINE NEGATIVE (NEGATIVE); NITRITE, URINE NEGATIVE (NEGATIVE); PROTEIN,URINE NEGATIVE (NEGATIVE); UGLUCOSE NEGATIVE (NEGATIVE); UROBILINOGEN,URINE 0.2 EU/dL (0.2)
[2024-01-04 21:55] LABS: AMPHETAMINE, URINE NEGATIVE (NEGATIVE); BARBITURATE, URINE NEGATIVE (NEGATIVE); CANNABINOID, URINE NEGATIVE (NEGATIVE); COCCAINE, URINE NEGATIVE (NEGATIVE); OPIATE, URINE NEGATIVE (NEGATIVE); PHENCYCLIDINE SCREEN,URINE NEGATIVE (NEGATIVE)
[2024-01-04 22:00] LABS: BENZODIAZEPINE, URINE POSITIVE (NEGATIVE)
[2024-01-04 23:34] VITALS: BP 123/70; TEMP 98.1; O2SAT 99
== END 2024-01-04 23:34 | disposition home or self-care (01) ==
LOC: ER 18:37
DX: S99.912A Unspecified injury of left ankle, initial encounter (principal); F10.129 Alcohol abuse with intoxication, unspecified; R45.1 Restlessness and agitation; Z88.0 Allergy status to penicillin; Z20.822 Contact with and (suspected) exposure to COVID-19; X58.XXXA Exposure to other specified factors, initial encounter; Y93.89 Activity, other specified; Y92.89 Other specified places as the place of occurrence of the external cause; Y99.8 Other external cause status; Y90.7 Blood alcohol level of 200-239 mg/100 ml
CPT/HCPCS: 99284; 96372; 73610; 73630; 85025; 80048; 80076; 84703; 81003; 36415; 87426; 80143; 80320; 80307; J3490; G0480